=== PATIENT | female | born 1990 | race Two or more races ===

== ENCOUNTER 2020-04-18 00:34 | Outpatient (CLI) | payer OTHER ==
[~2020-04-18] VITALS: Ht 157.5 cm; Wt 96.0 kg
[2020-04-18 00:40] VITALS: BP 122/68
[2020-04-18 01:00] VITALS: BP 122/68
[2020-04-18] MEDS ORDERED: PROMETHAZINE 25 MG/ML, 1ML IM ONE (02:30)
[2020-04-18] MEDS ORDERED: MEPERIDINE/PF 50 MG/ML IM PRN (02:30)
[2020-04-18] MEDS ORDERED: MEPERIDINE/PF 100 MG/ML ONE (02:33)
[2020-04-18] MEDS ORDERED: PROMETHAZINE 25 MG/ML, 1ML ONE (02:33)
[2020-04-22] MEDS ORDERED: IBUP-1222 PO (09:08)
== END 2020-04-18 02:58 | disposition home or self-care (01) ==
LOC: LDOP 00:34
PROVIDERS: ATTEND Obstetrics & Gynecology
DX: O62.9 Abnormality of forces of labor, unspecified (principal); Z11.59 Encounter for screening for other viral diseases; Z3A.30 30 weeks gestation of pregnancy
CPT/HCPCS: 36415; 59025; 87635; 96372; J2175; J2550

== ENCOUNTER 2020-08-10 18:40 | Emergency (ER) | payer OTHER ==
[~2020-08-10] VITALS: Ht 157.5 cm; Wt 90.9 kg
[~2020-08-10 18:40] MED LIST: IBUP-1222 PO
--- NOTE | 2020-08-10 19:00 | NUR ---
PATIENT WALKED BACK FROM TRIAGE WITH CHIEF C/O SPOTTING AND ABD CRAMPING. PATIENT STATES SHE FOUND OUT 2 WEEKS AGO SHE IS , HAS NOT BEEN TO AN OB YET. TODAY AT WORK SHE STARTED EXPERIENCING SOME ABD CRAMPING AND NOTICED A SMALL AMOUNT OF BLOOD IN HER UNDERWEAR. PATIENT HAD RECENT OF SON 3 MONTHS AGO. NO SIGNS OF ACUTE DISTRESS, CONNECTED TO VITALS MACHINE, CALL LIGHT WITHIN REACH.
--- NOTE | 2020-08-10 19:14 | NUR ---
ROOM MAID AT BEDSIDE.
--- NOTE | 2020-08-10 19:22 | NUR ---
PATIENT TO ULTRASOUND.
[2020-08-10 19:45] LABS: ALBUMIN 4.1 g/dL (3.4-5.0); ANION GAP 5 mmol/L (5-15); BASOPHILS % (AUTO) 0 % (0-1); CHLORIDE 107 mmol/L (98-107); EOSINOPHILS % (AUTO) 1 % (1-7); LYMPHOCYTES % (AUTO) 26 % (22-44); MEAN CORPUSCULAR HEMOGLOBIN 26.3 pg (27.0-34.8); MEAN CORPUSCULAR HGB CONC 32.8 g/dL (32.4-35.8); MONOCYTES % (AUTO) 7 % (2-9); NEUTROPHILS % (AUTO) 66 % (42-75); PLATELET COUNT 323 x10^3/uL (130-400); RED BLOOD COUNT 4.98 x10^6/uL (3.82-5.3); RED CELL DISTRIBUTION WIDTH 12.9 % (9.6-15.2)
[2020-08-10 19:47] LABS: MD NO
--- NOTE | 2020-08-10 19:52 | NUR ---
PATIENT RESTING IN [facility], ON PHONE, VITALS WITHIN NORMAL LIMITS, CALL LIGHT WITHIN REACH, NO FURTHER NEEDS AT THIS TIME.
[2020-08-10 20:15] LABS: ALANINE AMINOTRANSFERASE 20 U/L (12-78); ALKALINE PHOSPHATASE 99 U/L (45-117); BILIRUBIN,TOTAL 0.5 mg/dL (0.2-1.0); TOTAL PROTEIN 7.8 g/dL (6.4-8.2)
--- NOTE | 2020-08-10 20:29 | NUR ---
ERMD AT BEDSIDE TO DISCUSS POC.
[2020-08-10 20:40] VITALS: BP 93/55
--- NOTE | 2020-08-10 20:45 | NUR ---
Patient given discharge instructions and they have confirmed that they understand the instructions, all questions answered. All patient belongings gathered and taken with patient. Patient ambulatory with steady gait.
== END 2020-08-10 20:51 | disposition home or self-care (01) ==
LOC: ED 19:43
DX: O20.0 Threatened abortion (principal); R10.2 Pelvic and perineal pain; Z3A.01 Less than 8 weeks gestation of pregnancy; Z87.891 Personal history of nicotine dependence
CPT/HCPCS: 36415; 76801; 80053; 84702; 85025; 86901; 99284

== ENCOUNTER 2021-02-10 12:21 | Outpatient (CLI) | payer MEDICAID ==
[~2021-02-10] VITALS: Ht 157.5 cm; Wt 95.7 kg
[2021-02-10 12:37] VITALS: BP 121/59
[2021-02-10 13:38] LABS: BASOPHILS % (AUTO) 0 % (0-1); EOSINOPHILS % (AUTO) 1 % (1-7); LYMPHOCYTES % (AUTO) 15 % (22-44); MEAN CORPUSCULAR HEMOGLOBIN 27.4 pg (27.0-34.8); MEAN CORPUSCULAR HGB CONC 33.6 g/dL (32.4-35.8); MEAN PLATELET VOLUME 8.2 fL (7.4-10.4); MONOCYTES % (AUTO) 6 % (2-9); NEUTROPHILS % (AUTO) 77 % (42-75); PLATELET COUNT 256 x10^3/uL (130-400); RED BLOOD COUNT 4.04 x10^6/uL (3.82-5.3); RED CELL DISTRIBUTION WIDTH 12.5 % (9.6-15.2)
[2021-02-10 13:41] LABS: MD NO
[2021-02-10 13:42] LABS: AMPHETAMINE SCREEN, URINE Negative (Negative); BARBITURATE SCREEN, URINE Negative (Negative); BENZODIAZEPINE SCREEN, URINE Negative (Negative); CANNABINOID SCREEN, URINE Negative (Negative); COCAINE SCREEN, URINE Negative (Negative); METHADONE SCREEN, URINE Negative (Negative); OPIATE SCREEN, URINE Negative (Negative)
[2021-02-10 13:45] LABS: MICROSCOPIC INDICATED
[2021-02-10] MEDS ORDERED: PREN1TAB60 PO (15:00)
[2021-02-10] MEDS ORDERED: NITR100C56 PO (15:00)
== END 2021-02-10 16:00 | disposition home or self-care (01) ==
LOC: LDOP 12:21
PROVIDERS: ATTEND Obstetrics & Gynecology
DX: O26.893 Other specified pregnancy related conditions, third trimester (principal); M54.9 Dorsalgia, unspecified; Z3A.33 33 weeks gestation of pregnancy
CPT/HCPCS: 36415; 59025; 76805; 80307; 81001; 85025; 86592; 86762; 86850; 86900; 87077; 87086; 87186; 87340; 87491; 87591; 87806; G0475